=== PATIENT | male | born 1985 | race Caucasian/White ===

== ENCOUNTER 2016-08-08 17:16 | Emergency (ER) | payer SELFPAY | END 2016-08-08 19:39 | disposition home or self-care (01) | LOC: ED 17:16 | DX: J36 Peritonsillar abscess (principal) | CPT/HCPCS: J0696; J1885; J2930; Q9967 ==

== ENCOUNTER 2017-07-29 19:28 | Emergency (ER) | payer SELFPAY ==
[~2017-07-29] VITALS: Ht 182.9 cm; Wt 97.7 kg
[2017-07-29] MEDS ORDERED: BACTRIM DS TAB1 EACH PO (20:43)
[2017-07-29 20:54] VITALS: BP 140/90
== END 2017-07-29 20:54 | disposition home or self-care (01) ==
LOC: ED 19:28
DX: L73.9 Follicular disorder, unspecified (principal); L03.211 Cellulitis of face
CPT/HCPCS: J1885

== ENCOUNTER 2018-06-12 08:36 | Emergency (ER) | payer BC ==
[~2018-06-12] VITALS: Ht 182.9 cm; Wt 97.7 kg
[~2018-06-12 08:36] MED LIST: BACTRIM DS TAB1 EACH PO
[2018-06-12 09:17] LABS: HEMATOCRIT 38.9 % (42.0-52.0); HEMOGLOBIN 13.4 g/dL (13.5-18.0); MEAN CELL VOLUME 88 fl (78-100); MEAN CORPUSCULAR HEMOGLOBIN 30 pg (27-31); MEAN CORPUSCULAR HGB CONC 34 g/dL (33-37); MEAN PLATELET VOLUME 9.1 fl (7.4-10.4); PLATELET COUNT 488 K/mm3 (130-400); RED BLOOD COUNT 4.44 M/mm3 (4.20-5.60); RED CELL DISTRIBUTION WIDTH 12.4 % (11.5-14.5); WHITE BLOOD COUNT 15.6 K/mm3 (4.8-10.8)
[2018-06-12 09:30] LABS: ALBUMIN 4.1 g/dL (3.5-5.0); POTASSIUM 3.6 mmol/L (3.6-5.0); TOTAL BILIRUBIN 0.9 mg/dL (0.2-1.3); TOTAL PROTEIN 7.2 g/dL (6.3-8.2)
[2018-06-12 09:43] LABS: LYMPHOCYTE 11 % (20-51); NEUTROPHILS 82 % (42-75)
[2018-06-12 09:44] LABS: MONOCYTE 6 % (3-10)
[2018-06-12 10:46] LABS: URINE APPEARANCE CLEAR; URINE BILIRUBIN NEGATIVE (NEGATIVE); URINE BLOOD 50 ery/uL (NEGATIVE); URINE COLOR YELLOW; URINE GLUCOSE NEGATIVE (NEGATIVE); URINE KETONE 2+ (NEGATIVE); URINE LEUKOCYTE ESTERASE NEGATIVE (NEGATIVE); URINE MUCUS PRESENT (NOT PRESENT); URINE NITRATE NEGATIVE (NEGATIVE); URINE PROTEIN(semi-quant) 1+ mg/dL (NEGATIVE); URINE UROBILINOGEN NORMAL (NORMAL); URINE WBC 0-1 /hpf (0-3)
[2018-06-12 12:09] VITALS: BP 163/113
== END 2018-06-12 12:04 | disposition short-term general hospital (02) ==
LOC: ED 08:36
PROVIDERS: Nurse Practitioner Primary Care
DX: N13.2 Hydronephrosis with renal and ureteral calculous obstruction (principal); F17.210 Nicotine dependence, cigarettes, uncomplicated; Z98.890 Other specified postprocedural states
CPT/HCPCS: J2270; J2405; J3010; Q9967